=== PATIENT | female | born 1980 | race Caucasian/White ===

== ENCOUNTER 2022-07-26 08:57 | Emergency (ER) | payer BC, SELFPAY ==
[2022-07-26 09:00] VITALS: BP 156/98; PULSE 95; RESP 20; TEMP 36.7; O2SAT 100; BMI 23.9
--- NOTE | 2022-07-26 09:31 | CRLHL7_ITS ---
For Patients: As a result of the Cures Act, medical imaging exams and procedure reports are released immediately into your electronic medical record. You may view this report before your referring provider. If you have questions, please contact your health care provider. INDICATION: Chest pain COMPARISON: None TECHNIQUE: Single-view study FINDINGS: TUBES AND LINES: None. HEART AND MEDIASTINUM: The heart size is normal. The mediastinal contour appears normal for patient age. LUNGS AND PLEURAL SPACES: The lungs appear normal.The pleural spaces are unremarkable. OSSEOUS STRUCTURES: Age-appropriate appearance. No acute focal finding. IMPRESSION: No evidence of active pulmonary disease. Dictated by Robson Miranda MD @ 07/26/2022 10:10:09 AM (Electronically Signed)
--- NOTE | 2022-07-26 09:33 | ED.GENADULT ---
HPI - General Adult General Chief complaint: Chest Pain Stated complaint: chest pains/possibly anxiety Time Seen by Provider: 07/26/22 09:02 History of Present Illness HPI narrative: 42-year-old female with a history of significant psychosocial stress with a divorce, she has been on Zoloft in the past for depression. She presents with 24 hours of cloudy head dizziness hot and cold spells and chest tightness that comes and goes. She has had no history of coronary artery disease or lung issues. She generally reports her health is good. She denies taking any street drugs, cocaine, Tylenol, and excess or aspirin in excess. The patient denies fevers denies leg swelling or edema bleeding or clotting problems. She does report that there is a new court meeting today with her ex- that is post to be complete, that she did not know about, she is concerned she does not have a lower. She is very stressed. She has contemplated suicide in the past but not currently, she does have a therapist she works with and is able to contact and work with them. Related Data Home Medications Medication Instructions Recorded Confirmed propranolol 20 mg tablet 20 mg PO 3XD 07/26/22 07/26/22 sertraline 100 mg tablet (Zoloft) 100 mg PO DAILY 07/26/22 07/26/22 Previous Rx's Medication Instructions Recorded lorazepam 0.5 mg tablet (Ativan) 0.5 mg PO TID PRN #10 tabs 07/26/22 Allergies Allergy/AdvReac Type Severity Reaction Status Date / Time No Known Drug Allergies Allergy Verified 07/26/22 09:07 Review of Systems Status of ROS: Reports: 6 or more systems reviewed and unremarkable except as noted in History and below PFSH PFSH Social History Smoking Status: Current every day smoker Do you use any of these nicotine containing products: None Second hand tobacco smoke exposure: No How often do you have a drink containing alcohol: 2-4 times a month How many standard drinks containing alcohol do you have on a typical day: 1 or 2 How often do you have six or more drinks on one occasion: Never AUDIT-C Alcohol total score: 2 Non-prescribed substance use: denies use Exam Narrative: Exam Narrative: Objective: Patient is anxious, blood pressure slightly elevated No facial asymmetry pupils aggression light Neck is supple Ches is clear Heart rhythm regular with a rate and rhythm, no murmur Abdomen benign soft Extremities are no edema neurologic nonfocal Skin warm and dry in the periphery Const: Vital Signs, click to edit/add: Vital Signs - 24 hr 07/26/22 09:00 Temperature 98.0 F Pulse Rate [Pulse Oximeter] 95 Respiratory Rate 20 Blood Pressure [Ri ght Upper Arm] 156/98 H Pulse Oximetry 100 Oxygen Delivery Me thod Room Air Course Vital Signs Vital signs: Initial Vital Signs Temperature 98.0 F 07/26/22 09:00 Temperature Source Temporal Artery Scan 07/26/22 09:00 Pulse Rate 95 07/26/22 09:00 Respiratory Rate 20 07/26/22 09:00 Blood Pressure 156/98 H 07/26/22 09:00 Blood Pressure Mean 117 H 07/26/22 09:00 Blood Pressure Position Sitting 07/26/22 09:00 Pulse Oximetry 100 07/26/22 09:00 Oxygen Delivery Method Room Air 07/26/22 09:00 Vital Signs Temperature 98.0 F 07/26/22 09:00 Pulse Rate 95 07/26/22 09:00 Respiratory Rate 20 07/26/22 09:00 Blood Pressure 156/98 H 07/26/22 09:00 Pulse Oximetry 100 07/26/22 09:00 Oxygen Delivery Method Room Air 07/26/22 09:00 Temperature 98.0 F 07/26/22 09:00 Pulse Rate 95 07/26/22 09:00 Respiratory Rate 20 07/26/22 09:00 Blood Pressure 156/98 H 07/26/22 09:00 Pulse Oximetry 100 07/26/22 09:00 Oxygen Delivery Method Room Air 07/26/22 09:00 Medical Decision Making MDM Narrative Medical decision making narrative: Patient is a 42-year-old female under significant psychosocial stress. She is likely just simply got significant anxiety. She denies suicidality at this point. She does have a therapist she has worked with. I think because she has had some intermittent chest tightness would be appropriate to rule out acute coronary syndrome, PE, pulmonary infection. Will check a chest x-ray, D-dimer, troponin, EKG which by my read shows normal sinus rhythm no weak acute EKG changes or ischemic changes. Will check electrolytes and labs give her IV Ativan as she does have a ride home from her daughter, and IV fluid. Disposition pending findings above. Addendum: The patient's laboratory studies including CRP, troponin, CBC ER profile are all unremarkable. Her EKG looks normal. Her chest x-ray looks normal by my read. At this point I think we can allow her to go home rest light activity off duties today, Ativan as needed no red be off any activity today. And recheck with primary care in the next 2-3 days recommend she promptly consult with her therapist, return to ED sooner problems or concerns. Lab Data Labs: Lab Results 07/26/22 Range/Units 09:40 WBC 5.67 (4.50-11.00) K/uL RBC 4.46 (4.00-5.20) m/uL Hgb 13.8 (12.0-16.0) gm/dL Hct 41.1 (33.0-51.0) % MCV 92 (80-100) fL MCH 31 (26-34) pg MCHC 34 (32-36) gm/dL RDW Coeff of Felix 12.2 (11.5-15.5) % Plt Count 289 (140-440) K/uL Neut % (Auto) 53.9 (42.0-72.0) % Lymph % (Auto) 37.6 (20-44) % [place] % (Auto) 7.2 (0.0-11.0) % Eos % (Auto) 0.9 (0.0-7.0) % Baso % (Auto) 0.4 (0.0-3.0) % Neut # (Auto) 3.06 (1.7-7.0) K/uL Lymph # (Auto) 2.13 (0.90-2.90) K/uL [place] # (Auto) 0.40 (0.00-0.90) K/UL Eos # (Auto) 0.05 (0.00-0.50) K/uL Baso # (Auto) 0.02 (0.00-0.30) K/uL D-Dimer Quant (PE/DVT) < 0.27 (0.00-0.50) ug/ml Sodium 139 (135-149) mmol/L Potassium 3.5 L (3.6-5.1) mmol/L Chloride 105 (96-114) mmol/L Carbon Dioxide 26 (20-32) mmol/L BUN 7 (5-24) mg/dL Creatinine 0.6 (0.5-1.5) mg/dL Estimated Creat Clear 100.01 Estimated GFR 114 ml/min Glucose 100 (60-115) mg/dL Calcium 8.6 (8.4-10.6) mg/dL Troponin I < 0.01 L (0.01-0.04) ng/mL C-Reactive Protein < 0.5 L (0.5-1.0) mg/dL NT-Pro-B Natriuret Pep 71 pg/mL Discharge Plan Discharge Clinical Impression: Psychosocial stressors, Chest pain Patient Disposition: Home w/ Parent or Adult Condition: Improved Additional Instructions: Contact her therapist for prompt visit, Ativan as needed for anxiety or stress. Cautioned about sedative effect of the Ativan. Would recommend follow-up with primary care in the next 2-3 days for reassessment, certainly return to ED sooner problems or concerns. Off any activities today Activity Level: Light activity Discharge Diet: Regular Prescriptions: New lorazepam [Ativan] 0.5 mg tablet 0.5 mg PO TID PRNQty: 10 0RF No Action propranolol 20 mg tablet 20 mg PO 3XD sertraline [Zoloft] 100 mg tablet 100 mg PO DAILY Follow Up/Referrals: Jerardo Salinas MD [Primary Care Provider] - Stand Alone Forms: [employer] Info Instructions
[2022-07-26 09:50] LABS: Basophils Absolute Auto 0.02 K/uL (0.00-0.30); Basophils Percent Auto 0.4 % (0.0-3.0); Eosinophils Absolute Auto 0.05 K/uL (0.00-0.50); Eosinophils Percent Auto 0.9 % (0.0-7.0); Hematocrit 41.1 % (33.0-51.0); Hemoglobin* 13.8 gm/dL (12.0-16.0); Lymphocytes Absolute Auto 2.13 K/uL (0.90-2.90); Lymphocytes Percent Auto 37.6 % (20-44); Mean Corpuscular HGB Conc 34 gm/dL (32-36); Mean Corpuscular Hemoglobin 31 pg (26-34); Mean Corpuscular Volume 92 fL (80-100); Monocytes Percent Auto 7.2 % (0.0-11.0); Neutrophils Absolute Auto 3.06 K/uL (1.7-7.0); Neutrophils Percent Auto 53.9 % (42.0-72.0); Platelet Count* 289 K/uL (140-440); RDW Coefficient of Variation % 12.2 % (11.5-15.5); Red Blood Count 4.46 m/uL (4.00-5.20); White Blood Count* 5.67 K/uL (4.50-11.00)
[2022-07-26] MEDS: ASPIRIN 81 MG TAB.CHEW 324 MG PO (09:54)
[2022-07-26] MEDS: 0.9 % SODIUM CHLORIDE 1000 ml 1,000 ML 6000 ML IV (09:54)
[2022-07-26] MEDS: LORazepam 2 MG/ML inj 1 MG IVP (09:54)
[2022-07-26 09:55] LABS: Slide Review Reflex No
[2022-07-26 10:03] LABS: Chloride* 105 mmol/L (96-114); Potassium* 3.5 mmol/L (3.6-5.1); Sodium* 139 mmol/L (135-149)
[2022-07-26 10:06] LABS: Carbon Dioxide* 26 mmol/L (20-32); Creatinine* 0.6 mg/dL (0.5-1.5); Est. Creatinine Clearance* 100.01; Estimated Glomerular Filt Rate 114 ml/min
[2022-07-26 10:07] LABS: Blood Urea Nitrogen* 7 mg/dL (5-24); Calcium* 8.6 mg/dL (8.4-10.6); Glucose* 100 mg/dL (60-115)
[2022-07-26 10:10] LABS: C Reactive Protein* < 0.5 mg/dL (0.5-1.0)
[2022-07-26 10:15] LABS: D Dimer Quantitative* < 0.27 ug/ml (0.00-0.50)
[2022-07-26 10:25] LABS: Troponin I* < 0.01 ng/mL (0.01-0.04)
[2022-07-26 10:26] LABS: NT Pro B Type NatriureticPept* 71 pg/mL
== END 2022-07-26 10:51 | disposition home or self-care (01) ==
LOC: ED 09:43
PROVIDERS: Emergency Provider Family Medicine; PCP Family Medicine
DX: R07.9 Chest pain, unspecified (principal); Z65.8 Other specified problems related to psychosocial circumstances
CPT/HCPCS: 36415; 71045; 80048; 83880; 84484; 85025; 85379; 86140; 93005; 96374; 99284; 99285; A9270; J2060; J7030